=== PATIENT | female | born 1990 | race African-American/Black ===

== ENCOUNTER 2020-09-21 19:51 | Emergency (ER) | payer OTHER ==
[~2020-09-21] VITALS: Ht 165.1 cm; Wt 82.1 kg
[2020-09-21 20:41] LABS: CLARITY,URINE HAZY (CLEAR); COLOR,URINE YELLOW (YELLOW); KETONES,URINE NEGATIVE (NEGATIVE); LEUKOCYTE ESTERASE ,URINE TRACE (NEGATIVE); NITRITE,URINE NEGATIVE (NEGATIVE); PROTEIN,URINE DIPSTICK NEGATIVE (NEGATIVE); URINE UROBILINOGEN 0.2 mg/dL (0.2 - 1)
[2020-09-21 20:52] LABS: AMORPHOUS SEDIMENT,URINE MODERATE (FEW); BACTERIA,URINE FEW /HPF; RBC,URINE 0-5 /HPF (0-5); WBC,URINE (MAN) 0-5 /HPF (0-5)
== END 2020-09-21 21:40 | disposition home or self-care (01) ==
LOC: ER 20:03
DX: O20.9 Hemorrhage in early pregnancy, unspecified (principal)
CPT/HCPCS: 81001; 99282